=== PATIENT | female | born 1955 | race Caucasian/White ===

== ENCOUNTER 2022-01-13 09:37 | Inpatient (IN) ==
--- NOTE | 2022-01-13 10:12 | Emergency Department Note ---
History of Present Illness General Chief complaint: Referred by Doctor Stated complaint: ABNORMAL LABS, REFERRED BY DANIEL DEMPSEY Time Seen by Provider: 01/13/22 09:53 Source: patient, family ( who is at the bedside), RN notes reviewed and old records reviewed Mode of arrival: ambulatory Limitations: no limitations History of Present Illness This patient is a 66-year-old female who was sent over by Dr. Murphy's office after having a third-degree heart block noted on her ZIO monitor that she has not had on for the last 10 days. She said this all started on October 29 when she had a colonoscopy it was noted that she was having some atrial arrhythmias and heart blocks. She just completed the ZIO. She denies that she is had any chest pain occasionally she gets lightheaded when walking but no syncope or near syncope no nausea vomiting no fever chills no blood or melena stool no tick bites or exposures or rash no thyroid disease . no history of any similar problems Home Medications Medication Instructions Recorded Confirmed Type fexofenadine 60 mg tablet (Marilyn 60 mg PO DAILY 01/13/22 01/13/22 History Allergy) fluticasone propionate 50 2 spray INTRANASAL DAILY 01/13/22 01/13/22 History mcg/actuation nasal spray,suspension folic acid 1 mg tablet 1 mg PO DAILY 01/13/22 01/13/22 History mecobalamin (vitamin B12) 1,000 1,000 mcg PO DAILY 01/13/22 01/13/22 History mcg chewable tablet (B12 Active) Allergies Allergy/AdvReac Type Severity Reaction Status Date / Time No Known Allergies Allergy Unverified 01/13/22 11:08 Past Med/Surg History Medical History Seasonal allergies Surgical History No significant past surgical history Family History Mother Cancer Father Diabetes Social History Smoking Status: Never smoker Hx Alcohol Use: No Hx Substance Use: No Preferred Language: Mongolian Tube Blower Required: No Beliefs That Will Affect Care: None Other Information That Helps Us Care for You: No Feels Safe at Home: Yes Safety Concerns: Feels Safe At This Time Assistive Devices: Glasses Immunizations: Past medical history seasonal allergies denies significant past medical history otherwise. Denies diabetes or coronary artery disease no Allergiesno known drug allergy Social history does not smoke. Drinks socially. She is retired. Review of Systems A total of 10 systems reviewed and were otherwise negative Physical Exam Vital Signs Vital Signs - 24 hr 01/13/22 09:38 01/13/22 10:02 01/13/22 10:40 Temperature 36.4 C L Temperature Source Temporal Artery Scan Pulse Rate 93 H 78 Pulse Rate [Left Finger] 86 Pulse Rhythm Regular Respiratory Rate 18 16 20 Blood Pressure 176/97 H Blood Pressure [Left Arm] 186/106 H Blood Pressure Mean 123 Blood Pressure Mean [Left Arm] 132 Blood Pressure Position [Left Arm] Sitting Pulse Oximetry 97 98 98 Oxygen Delivery Method Room Air Room Air Sepsis Recent Fever Within 48 Hours No Sepsis New/Unexplained Change in Mental Status No Sepsis Action Taken by Nursing No Action Required General: Well developed well nourished middle-age female who appears in no acute distress, breathing comfortably on room air. Normal speech HEENT: Normal cephalic atraumatic. Pupils are equal round and reactive to light. Extraocular movements are intact. Oropharynx is pink with moist mucous membranes. No swelling of the mouth lips or tongue. Neck: Supple with a midline trachea. No meningeal signs or stiffness, no JVD or bruits. No Stridor. Chest: Clear to auscultation bilaterally. No wheezes or rhonchi. No increased work of breathing. Heart: Regular rate and rhythm without murmurs or gallops. Abdomen: Soft nontender, nondistended without rebound guarding or rigidity. Extremities: No cyanosis clubbing or edema. No calf tenderness or assymetry Spine/Back. Non tender to palpation. No CVA tenderness Skin: Good turgor without rashes. Neurologic exam: Cranial nerves two through 12 are intact. Motor and sensation are intact and symmetrical throughout. Course Administered Medications Discontinued Medications Sodium Chloride (Nss 1000ml) 500 mls @ 999 mls/hr IV .Q31M ONE Stop: 01/13/22 10:48 Last Infusion: 01/13/22 15:03 Dose: 0 mls/hr Documented by: [id number] Admin: 01/13/22 10:33 Dose: 999 mls/hr Documented by: [id number] Medical Decision Making Differential Diagnosis Third-degree heart block, arrhythmia, acute coronary syndrome, electrolyte or metabolic abnormality, Lyme disease, thyroid disease, valvular heart disease Medical Records Attestation: I reviewed the patient's medical records. Home Medications Current Medication List: was personally reviewed by me Laboratory Data Attestation: I reviewed the patient's lab results. Result diagrams: 01/13/22 10:49 01/13/22 09:58 Lab Results 01/13/22 01/13/22 01/13/22 Range/Units 09:58 09:58 09:58 WBC Cancelled RBC Cancelled Hgb Cancelled Hct Cancelled MCV Cancelled MCH Cancelled MCHC Cancelled RDW Std Deviation Cancelled RDW Coeff of Kiesha Cancelled Plt Count Cancelled MPV Cancelled Immature Gran % (Auto) Cancelled Neut % (Auto) Cancelled Lymph % (Auto) Cancelled Mcleod % (Auto) Cancelled Eos % (Auto) Cancelled Baso % (Auto) Cancelled Neut # (Auto) Cancelled Lymph # (Auto) Cancelled Mcleod # (Auto) Cancelled Eos # (Auto) Cancelled Baso # (Auto) Cancelled Immature Gran # (Auto) Cancelled Absolute Nucleated RBC Cancelled Nucleated RBC % (auto) Cancelled Neutrophils % (Manual) Cancelled Band Neutrophils % Cancelled Lymphocytes % (Manual) Cancelled Prolymphocyte % Cancelled Reactive Lymphs % (Man) Cancelled Monocytes % (Manual) Cancelled Eosinophils % (Manual) Cancelled Basophils % (Manual) Cancelled Metamyelocytes % (Man) Cancelled Myelocytes % (Man) Cancelled Promyelocytes % (Man) Cancelled Blast Cells % (Manual) Cancelled Plasma Cell % (Manual) Cancelled Other Cells % Cancelled Nucleated RBC % Cancelled Neutrophils # (Manual) Cancelled Band Neutrophils # Cancelled Total Absolute Neuts Cancelled Lymphocytes # (Manual) Cancelled Prolymphocyte # Cancelled Reactive Lymphs # Cancelled Total Abs Lymphocytes Cancelled Monocytes # (Manual) Cancelled Eosinophils # (Manual) Cancelled Basophils # (Manual) Cancelled Metamyelocytes # (Man) Cancelled Myelocytes # (Manual) Cancelled Promyelocytes # (Man) Cancelled Blast Cells # (Man) Cancelled Plasma Cell # (Manual) Cancelled Other Cells # Cancelled Nucleated RBCs # (Man) Cancelled Hypersegmented Neuts Cancelled Hyposegmented Neuts Cancelled Hypogranular Neuts Cancelled Large Granular Lymphs Cancelled # Lrg Granular Lymphs Cancelled Hairy Cells Cancelled Smudge Cells Cancelled Toxic Granulation Cancelled Toxic Vacuolation Cancelled Dohle Bodies Cancelled Danilo Rods Cancelled Platelet Estimate Cancelled Hypogranular Platelets Cancelled Clumped Platelets Cancelled Giant Platelets Cancelled Platelet Satelliting Cancelled RBC Morphology Cancelled Polychromasia Cancelled Hypochromasia Cancelled Poikilocytosis Cancelled Basophilic Stippling Cancelled Anisocytosis Cancelled Microcytosis Cancelled Macrocytosis Cancelled Spherocytes Cancelled Pappenheimer Bodies Cancelled Sickle Cells Cancelled Target Cells Cancelled Tear Drop Cells Cancelled Ovalocytes Cancelled Stomatocytes Cancelled [place] Bodies Cancelled Echinocytes Cancelled Acanthocytes (Spur) Cancelled Rouleaux Cancelled RBC Agglutinates Cancelled Schistocytes Cancelled Sezary Cell Cancelled PT Cancelled INR Cancelled APTT Cancelled PTT Ratio Cancelled Sodium 139 (136-145) mmol/L Potassium 3.8 (3.5-5.1) mmol/L Chloride 106 (98-107) mmol/L Carbon Dioxide 21 (21-32) mmol/L Anion Gap 12 H (3-11) BUN 12 (6-23) mg/dl Creatinine 0.60 (0.6-1.2) mg/dl Est Cr Clr Drug Dosing 72.4 ml/min Est GFR ( Amer) 109.3 ml/min Est GFR (Non-Af Amer) 94.3 ml/min BUN/Creatinine Ratio 20.0 (10-20) Glucose 104 H (70-99(Fasting)) mg/dl Calcium 10.0 (8.5-10.1) mg/dl Total Bilirubin 0.8 (0.2-1.0) mg/dl AST 21 (13-39) U/L ALT 22 (7-52) U/L Alkaline Phosphatase 81 (34-104) U/L Troponin I High Sens 2.9 (0-14) pg/ml Total Protein 7.0 (6.0-8.3) gm/dl Albumin 4.8 (3.4-5.0) gm/dl Globulin 2.2 L (2.5-4.0) gm/dl Albumin/Globulin Ratio 2.2 H (0.9-2) Lipase (11-82) U/L TSH (0.300-4.500) uIu/ml Lyme Disease IgG Ab (Negative) Lyme Disease IgM Ab (Negative) SARS-CoV-2, RNA, NAAT (NEGATIVE) 01/13/22 01/13/22 01/13/22 Range/Units 09:58 10:24 10:24 WBC RBC Hgb Hct MCV MCH MCHC RDW Std Deviation RDW Coeff of Kiesha Plt Count MPV Immature Gran % (Auto) Neut % (Auto) Lymph % (Auto) Mcleod % (Auto) Eos % (Auto) Baso % (Auto) Neut # (Auto) Lymph # (Auto) Mcleod # (Auto) Eos # (Auto) Baso # (Auto) Immature Gran # (Auto) Absolute Nucleated RBC Nucleated RBC % (auto) Neutrophils % (Manual) Band Neutrophils % Lymphocytes % (Manual) Prolymphocyte % Reactive Lymphs % (Man) Monocytes % (Manual) Eosinophils % (Manual) Basophils % (Manual) Metamyelocytes % (Man) Myelocytes % (Man) Promyelocytes % (Man) Blast Cells % (Manual) Plasma Cell % (Manual) Other Cells % Nucleated RBC % Neutrophils # (Manual) Band Neutrophils # Total Absolute Neuts Lymphocytes # (Manual) Prolymphocyte # Reactive Lymphs # Total Abs Lymphocytes Monocytes # (Manual) Eosinophils # (Manual) Basophils # (Manual) Metamyelocytes # (Man) Myelocytes # (Manual) Promyelocytes # (Man) Blast Cells # (Man) Plasma Cell # (Manual) Other Cells # Nucleated RBCs # (Man) Hypersegmented Neuts Hyposegmented Neuts Hypogranular Neuts Large Granular Lymphs # Lrg Granular Lymphs Hairy Cells Smudge Cells Toxic Granulation Toxic Vacuolation Dohle Bodies Danilo Rods Platelet Estimate Hypogranular Platelets Clumped Platelets Giant Platelets Platelet Satelliting RBC Morphology Polychromasia Hypochromasia Poikilocytosis Basophilic Stippling Anisocytosis Microcytosis Macrocytosis Spherocytes Pappenheimer Bodies Sickle Cells Target Cells Tear Drop Cells Ovalocytes Stomatocytes [place] Bodies Echinocytes Acanthocytes (Spur) Rouleaux RBC Agglutinates Schistocytes Sezary Cell PT INR APTT PTT Ratio Sodium (136-145) mmol/L Potassium (3.5-5.1) mmol/L Chloride (98-107) mmol/L Carbon Dioxide (21-32) mmol/L Anion Gap (3-11) BUN (6-23) mg/dl Creatinine (0.6-1.2) mg/dl Est Cr Clr Drug Dosing ml/min Est GFR ( Amer) ml/min Est GFR (Non-Af Amer) ml/min BUN/Creatinine Ratio (10-20) Glucose (70-99(Fasting)) mg/dl Calcium (8.5-10.1) mg/dl Total Bilirubin (0.2-1.0) mg/dl AST (13-39) U/L ALT (7-52) U/L Alkaline Phosphatase (34-104) U/L Troponin I High Sens (0-14) pg/ml Total Protein (6.0-8.3) gm/dl Albumin (3.4-5.0) gm/dl Globulin (2.5-4.0) gm/dl Albumin/Globulin Ratio (0.9-2) Lipase 27 (11-82) U/L TSH (0.300-4.500) uIu/ml Lyme Disease IgG Ab Negative (Negative) Lyme Disease IgM Ab Negative (Negative) SARS-CoV-2, RNA, NAAT NEGATIVE (NEGATIVE) 01/13/22 01/13/22 01/13/22 Range/Units 10:49 10:49 10:50 WBC 5.14 RBC 4.35 Hgb 14.6 Hct 43.0 MCV 98.9 MCH 33.6 MCHC 34.0 RDW Std Deviation 44.7 RDW Coeff of Kiesha 12.3 Plt Count 209 MPV 10.9 H Immature Gran % (Auto) 0.2 Neut % (Auto) 59.3 Lymph % (Auto) 30.5 Mcleod % (Auto) 7.8 Eos % (Auto) 1.2 Baso % (Auto) 1.0 Neut # (Auto) 3.05 Lymph # (Auto) 1.57 Mcleod # (Auto) 0.40 Eos # (Auto) 0.06 Baso # (Auto) 0.05 Immature Gran # (Auto) 0.01 Absolute Nucleated RBC Nucleated RBC % (auto) Neutrophils % (Manual) Band Neutrophils % Lymphocytes % (Manual) Prolymphocyte % Reactive Lymphs % (Man) Monocytes % (Manual) Eosinophils % (Manual) Basophils % (Manual) Metamyelocytes % (Man) Myelocytes % (Man) Promyelocytes % (Man) Blast Cells % (Manual) Plasma Cell % (Manual) Other Cells % Nucleated RBC % Neutrophils # (Manual) Band Neutrophils # Total Absolute Neuts Lymphocytes # (Manual) Prolymphocyte # Reactive Lymphs # Total Abs Lymphocytes Monocytes # (Manual) Eosinophils # (Manual) Basophils # (Manual) Metamyelocytes # (Man) Myelocytes # (Manual) Promyelocytes # (Man) Blast Cells # (Man) Plasma Cell # (Manual) Other Cells # Nucleated RBCs # (Man) Hypersegmented Neuts Hyposegmented Neuts Hypogranular Neuts Large Granular Lymphs # Lrg Granular Lymphs Hairy Cells Smudge Cells Toxic Granulation Toxic Vacuolation Dohle Bodies Danilo Rods Platelet Estimate Hypogranular Platelets Clumped Platelets Giant Platelets Platelet Satelliting RBC Morphology Polychromasia Hypochromasia Poikilocytosis Basophilic Stippling Anisocytosis Microcytosis Macrocytosis Spherocytes Pappenheimer Bodies Sickle Cells Target Cells Tear Drop Cells Ovalocytes Stomatocytes [place] Bodies Echinocytes Acanthocytes (Spur) Rouleaux RBC Agglutinates Schistocytes Sezary Cell PT 11.2 INR 1.1 APTT 25.1 PTT Ratio 0.9 Sodium (136-145) mmol/L Potassium (3.5-5.1) mmol/L Chloride (98-107) mmol/L Carbon Dioxide (21-32) mmol/L Anion Gap (3-11) BUN (6-23) mg/dl Creatinine (0.6-1.2) mg/dl Est Cr Clr Drug Dosing ml/min Est GFR ( Amer) ml/min Est GFR (Non-Af Amer) ml/min BUN/Creatinine Ratio (10-20) Glucose (70-99(Fasting)) mg/dl Calcium (8.5-10.1) mg/dl Total Bilirubin (0.2-1.0) mg/dl AST (13-39) U/L ALT (7-52) U/L Alkaline Phosphatase (34-104) U/L Troponin I High Sens (0-14) pg/ml Total Protein (6.0-8.3) gm/dl Albumin (3.4-5.0) gm/dl Globulin (2.5-4.0) gm/dl Albumin/Globulin Ratio (0.9-2) Lipase (11-82) U/L TSH 1.956 (0.300-4.500) uIu/ml Lyme Disease IgG Ab (Negative) Lyme Disease IgM Ab (Negative) SARS-CoV-2, RNA, NAAT (NEGATIVE) Imaging Data Attestation: I personally reviewed and interpreted this imaging study as follo ws: My Impression: Chest x-rayno acute infiltrate, failure, pneumothorax seen Radiologist's Impression: Chest X-Ray 01/13/22 10:01 SINGLE VIEW CHEST CLINICAL HISTORY: Atypical chest pain. FINDINGS: An AP, portable, upright chest radiograph is obtained. No prior studies are available for comparison at the time of dictation. The car diomediastinal silhouette is unremarkable. The lungs and pleural spaces are clear. No pneumothorax is seen. The skeletal structures are osteopenic. The bony thorax is grossly intact. IMPRESSION: No active disease in the chest. ACT 112: Negative or not required by law. Electronically signed by: Evin Combs M.D. 01/13/2022 12:37 PM ECG Data Attestation: I personally reviewed and interpreted this ECG as follows: Indication: + bradycardia and + weakness Rate (beats per minute): 93 Rhythm: + normal sinus ECG Intervals/blocks: + Normal QRS, + Normal QT and + Normal FL ECG [place]: + Normal ECG ST segments: + Nonspecific ST abnormalities ECG Findings: no PACs or no PVCs Comparison ECG Date: no prior available MDM Narrative This patient comes in as described above. She was placed in room C4. She is asymptomatic at present but is have been having intermittent third-degree heart block. Currently on the monitor she is not in heart block. IV access was established multiple blood testing was obtained including Lyme studies. I r eviewed her Zio monitor strips that were sent over and she does have documented third-degree heart block at times. She has no acute electrolyte or metabolic abnormalities. She has a normal-appearing media monitor here. Chest x-ray does not show congestive heart failure pneumonia or pneumothorax her TSH is within normal limits which makes thyroid unlikely. Her Lyme titer was negative. I did consult Dr. Munson and he promptly saw the patient in ER we have kept the patient n.p.o. he will likely be taking her to have a pacemaker either today or tomorrow I have also consulted the [facility] admitting team and they saw the patient in ER for these measures as well. COVID testing was negative Continuous cardiac monitoring: Orders placed in EMR for continuous cardiac monitoring. Askew interpretation patient was noted to be in normal sinus rhythm with a rate of 90 Impression & Plan High degree atrioventricular block, Third degree heart block, Lab test negative for COVID-19 virus Discharge Plan Visit Data Chief Complaint: Referred by Doctor Stated Complaint: ABNORMAL LABS, REFERRED BY , HEART BLOCK ED Provider: Charles Jacobs Discharge Problem: High degree atrioventricular block, Third degree heart block, Lab test negative for COVID-19 virus Patient Disposition: Admitted As Inpatient Discharge Instructions Interventions: ED Discharge Assessment Last Done: 01/13/22 13:56
[2022-01-13] MEDS ORDERED: SODIUM CHLORIDE 0.9% 1000ML 500 ML IV ONE (10:18)
[2022-01-13 10:39] LABS: Albumin Globulin Ratio 2.2 (0.9-2); Albumin Level 4.8 gm/dl (3.4-5.0); Bilirubin,Total 0.8 mg/dl (0.2-1.0); Creatinine Clr Calc Pharmacy 72.4 ml/min; Est GFR (African American) 109.3 ml/min; Est GFR (Non-African American) 94.3 ml/min; Globulin 2.2 gm/dl (2.5-4.0); Potassium 3.8 mmol/L (3.5-5.1)
[2022-01-13 10:40] LABS: Troponin I High Sensitivity 2.9 pg/ml (0-14)
[2022-01-13 11:04] LABS: Basophils # (auto) 0.05 K/uL (0-0.2); Eosinophils # (auto) 0.06 K/uL (0-0.5); Eosinophils % (auto) 1.2 %; Hemoglobin 14.6 g/dL (12.0-16.0); Immature Granulocytes # (auto) 0.01 K/uL (0.00-0.02); Immature Granulocytes % (auto) 0.2 %; Lymphocytes # (auto) 1.57 K/uL (1.2-3.4); Lymphocytes % (auto) 30.5 %; Mean Corpuscular Hemoglobin 33.6 pg (25-34); Mean Corpuscular Volume 98.9 fL (80-100); Mean Platelet Volume 10.9 fL (7.4-10.4); Monocytes % (auto) 7.8 %; Neutrophils # (auto) 3.05 K/uL (1.4-6.5); Neutrophils % (auto) 59.3 %; Platelet Count 209 K/uL (130-400); RDW Coefficient of Variation 12.3 % (11.5-14.5); RDW Standard Deviation 44.7 fL (36.4-46.3); Red Blood Count 4.35 M/uL (4.2-5.4); White Blood Count 5.14 K/uL (4.8-10.8)
--- NOTE | 2022-01-13 11:20 | Cardiology Consultation ---
Date of Consultation January 13, 2022 Assessment & Plan (1) High degree atrioventricular block: Patient is a 66-year-old female active without significant medical issues who was observed having intermittent second-degree AV block following routine colonoscopy in October 2021. Patient in follow-up underwent 14-day Zio patch monitor which demonstrated intermittent second and third-degree AV block. Patient minimally symptomatic with occasional lightheadedness at times no prior history of syncope or near syncope. No history of structural heart disease or symptoms. Thyroid function and Lyme test pending. Patient currently without conduction abnormality on EKG and telemetry, asymptomatic and hemodynamically stable Recommendations: Complete evaluation with echocardiogram this morning. We will review laboratory testing as available. Discussed with patient likely need for dual-chamber pacemaker insertion and we will keep n.p.o. for potential procedure later today depending on results of testing History of Present Illness Reason for Consultation: Abnormal Zio patch, intermittent third-degree AV block Requesting Physician: Dr. Jacobs Attending Physician: Dr Álvarez History of Present Illness Patient is a 66-year-old female without prior cardiac disease or history was observed during colonoscopy in October to have transient second-degree AV block. Patient was referred and underwent cardiac evaluation and subsequent Zio patch event monitor recently completed. Study demonstrated intermittent second-degree as well as multiple episodes of brief third-degree heart block with junctional escape rhythm at 40 bpm. Patient has been referred for further evaluation. She is aware of occasional intermittent lightheadedness but notes no syncope or near syncope. Notes no chest pains, shortness of breath, tachypalpitations. No fevers chills or unexplained infections. No tick exposure or rash. No acute weight loss or gain. Patient physically active walks and exercises several days per week with good exercise tolerance. No sleep disturbances. No AV lloyd blocking medications no significant dietary supplements Patient has no personal history of hypertension, diabetes mellitus, angina, congestive heart failure. Blood pressure is elevated during examination today Patient has maternal uncles who have received pacemakers. Father with history of coronary artery disease Allergies Allergy/AdvReac Type Severity Reaction Status Date / Time No Known Allergies Allergy Unverified 01/13/22 11:08 Patient History Social History Smoking Status: Never smoker Preferred Language: Singaporean Feels Safe at Home: Yes Review of Systems Review of Systems: All systems reviewed & are unremarkable except as noted in HPI & below Physical Exam Constitutional: WD/WN, vitals as above Eyes: PERRL, conjunctivae normal, anicteric sclerae ENMT: external ear and nose normal, oropharynx normal Neck: trachea midline, no thyromegaly Respiratory: normal respiratory effort, lungs clear to auscultation Cardiovascular: Rate/Rhythm: regular rate and regular rhythm Heart Sounds: normal S1, normal S2 and + gallop (S4); no murmur Palpation: normal PMI Vessels: normal carotid upstroke and radial pulses present; no JVD and no carotid bruit Extremities: no edema Gastrointestinal (Abdomen): normal bowel sounds, soft, nontender, no hep atosplenomegaly Musculoskeletal: no cyanosis or clubbing, extremities motor strength 5/5 Skin: no rashes, warm and dry Neurologic: PERRL, EOMI, accommodation nl, no face palsy, no dysarthria Psychiatric: A+Ox3, euthymic affect Results & Data ([facility]) Vital Signs (Past 12 Hours) Vital Signs Temp Pulse Pulse Resp BP BP Pulse Ox 01/13/22 10:40 86 20 186/106 H 98 01/13/22 10:02 78 16 98 01/13/22 09:38 36.4 C L 93 H 18 176/97 H 97 Laboratory Results Laboratory Results - last 24 hr 01/13/22 01/13/22 01/13/22 09:58 09:58 09:58 WBC Cancelled RBC Cancelled Hgb Cancelled Hct Cancelled MCV Cancelled MCH Cancelled MCHC Cancelled RDW Std Deviation Cancelled RDW Coeff of Kiesha Cancelled Plt Count Cancelled MPV Cancelled Immature Gran % (Auto) Cancelled Neut % (Auto) Cancelled Lymph % (Auto) Cancelled Clark % (Auto) Cancelled Eos % (Auto) Cancelled Baso % (Auto) Cancelled Neut # (Auto) Cancelled Lymph # (Auto) Cancelled Clark # (Auto) Cancelled Eos # (Auto) Cancelled Baso # (Auto) Cancelled Immature Gran # (Auto) Cancelled Absolute Nucleated RBC Cancelled Nucleated RBC % (auto) Cancelled Neutrophils % (Manual) Cancelled Band Neutrophils % Cancelled Lymphocytes % (Manual) Cancelled Prolymphocyte % Cancelled Reactive Lymphs % (Man) Cancelled Monocytes % (Manual) Cancelled Eosinophils % (Manual) Cancelled Basophils % (Manual) Cancelled Metamyelocytes % (Man) Cancelled Myelocytes % (Man) Cancelled Promyelocytes % (Man) Cancelled Blast Cells % (Manual) Cancelled Plasma Cell % (Manual) Cancelled Other Cells % Cancelled Nucleated RBC % Cancelled Neutrophils # (Manual) Cancelled Band Neutrophils # Cancelled Total Absolute Neuts Cancelled Lymphocytes # (Manual) Cancelled Prolymphocyte # Cancelled Reactive Lymphs # Cancelled Total Abs Lymphocytes Cancelled Monocytes # (Manual) Cancelled Eosinophils # (Manual) Cancelled Basophils # (Manual) Cancelled Metamyelocytes # (Man) Cancelled Myelocytes # (Manual) Cancelled Promyelocytes # (Man) Cancelled Blast Cells # (Man) Cancelled Plasma Cell # (Manual) Cancelled Other Cells # Cancelled Nucleated RBCs # (Man) Cancelled Hypersegmented Neuts Cancelled Hyposegmented Neuts Cancelled Hypogranular Neuts Cancelled Large Granular Lymphs Cancelled # Lrg Granular Lymphs Cancelled Hairy Cells Cancelled Smudge Cells Cancelled Toxic Granulation Cancelled Toxic Vacuolation Cancelled Dohle Bodies Cancelled Danilo Rods Cancelled Platelet Estimate Cancelled Hypogranular Platelets Cancelled Clumped Platelets Cancelled Giant Platelets Cancelled Platelet Satelliting Cancelled RBC Morphology Cancelled Polychromasia Cancelled Hypochromasia Cancelled Poikilocytosis Cancelled Basophilic Stippling Cancelled Anisocytosis Cancelled Microcytosis Cancelled Macrocytosis Cancelled Spherocytes Cancelled Pappenheimer Bodies Cancelled Sickle Cells Cancelled Target Cells Cancelled Tear Drop Cells Cancelled Ovalocytes Cancelled Stomatocytes Cancelled Curiel-[place]park Bodies Cancelled Echinocytes Cancelled Acanthocytes (Spur) Cancelled Rouleaux Cancelled RBC Agglutinates Cancelled Schistocytes Cancelled Sezary Cell Cancelled PT Cancelled INR Cancelled APTT Cancelled PTT Ratio Cancelled Sodium 139 Potassium 3.8 Chloride 106 Carbon Dioxide 21 Anion Gap 12 H BUN 12 Creatinine 0.60 Est Cr Clr Drug Dosing 72.4 Est GFR ( Amer) 109.3 Est GFR (Non-Af Amer) 94.3 BUN/Creatinine Ratio 20.0 Glucose 104 H Calcium 10.0 Total Bilirubin 0.8 AST 21 ALT 22 Alkaline Phosphatase 81 Troponin I High Sens 2.9 Total Protein 7.0 Albumin 4.8 Globulin 2.2 L Albumin/Globulin Ratio 2.2 H Lipase TSH Lyme Disease IgG Ab Lyme Disease IgM Ab SARS-CoV-2, RNA, NAAT 01/13/22 01/13/22 01/13/22 09:58 10:24 10:24 WBC RBC Hgb Hct MCV MCH MCHC RDW Std Deviation RDW Coeff of Kiesha Plt Count MPV Immature Gran % (Auto) Neut % (Auto) Lymph % (Auto) Clark % (Auto) Eos % (Auto) Baso % (Auto) Neut # (Auto) Lymph # (Auto) Clark # (Auto) Eos # (Auto) Baso # (Auto) Immature Gran # (Auto) Absolute Nucleated RBC Nucleated RBC % (auto) Neutrophils % (Manual) Band Neutrophils % Lymphocytes % (Manual) Prolymphocyte % Reactive Lymphs % (Man) Monocytes % (Manual) Eosinophils % (Manual) Basophils % (Manual) Metamyelocytes % (Man) Myelocytes % (Man) Promyelocytes % (Man) Blast Cells % (Manual) Plasma Cell % (Manual) Other Cells % Nucleated RBC % Neutrophils # (Manual) Band Neutrophils # Total Absolute Neuts Lymphocytes # (Manual) Prolymphocyte # Reactive Lymphs # Total Abs Lymphocytes Monocytes # (Manual) Eosinophils # (Manual) Basophils # (Manual) Metamyelocytes # (Man) Myelocytes # (Manual) Promyelocytes # (Man) Blast Cells # (Man) Plasma Cell # (Manual) Other Cells # Nucleated RBCs # (Man) Hypersegmented Neuts Hyposegmented Neuts Hypogranular Neuts Large Granular Lymphs # Lrg Granular Lymphs Hairy Cells Smudge Cells Toxic Granulation Toxic Vacuolation Dohle Bodies Danilo Rods Platelet Estimate Hypogranular Platelets Clumped Platelets Giant Platelets Platelet Satelliting RBC Morphology Polychromasia Hypochromasia Poikilocytosis Basophilic Stippling Anisocytosis Microcytosis Macrocytosis Spherocytes Pappenheimer Bodies Sickle Cells Target Cells Tear Drop Cells Ovalocytes Stomatocytes Curiel-[place] Bodies Echinocytes Acanthocytes (Spur) Rouleaux RBC Agglutinates Schistocytes Sezary Cell PT INR APTT PTT Ratio Sodium Potassium Chloride Carbon Dioxide Anion Gap BUN Creatinine Est Cr Clr Drug Dosing Est GFR ( Amer) Est GFR (Non-Af Amer) BUN/Creatinine Ratio Glucose Calcium Total Bilirubin AST ALT Alkaline Phosphatase Troponin I High Sens Total Protein Albumin Globulin Albumin/Globulin Ratio Lipase 27 TSH Lyme Disease IgG Ab Pending Lyme Disease IgM Ab Pending SARS-CoV-2, RNA, NAAT NEGATIVE 01/13/22 01/13/22 01/13/22 10:49 10:49 10:50 WBC 5.14 RBC 4.35 Hgb 14.6 Hct 43.0 MCV 98.9 MCH 33.6 MCHC 34.0 RDW Std Deviation 44.7 RDW Coeff of Kiesha 12.3 Plt Count 209 MPV 10.9 H Immature Gran % (Auto) 0.2 Neut % (Auto) 59.3 Lymph % (Auto) 30.5 Clark % (Auto) 7.8 Eos % (Auto) 1.2 Baso % (Auto) 1.0 Neut # (Auto) 3.05 Lymph # (Auto) 1.57 Clark # (Auto) 0.40 Eos # (Auto) 0.06 Baso # (Auto) 0.05 Immature Gran # (Auto) 0.01 Absolute Nucleated RBC Nucleated RBC % (auto) Neutrophils % (Manual) Band Neutrophils % Lymphocytes % (Manual) Prolymphocyte % Reactive Lymphs % (Man) Monocytes % (Manual) Eosinophils % (Manual) Basophils % (Manual) Metamyelocytes % (Man) Myelocytes % (Man) Promyelocytes % (Man) Blast Cells % (Manual) Plasma Cell % (Manual) Other Cells % Nucleated RBC % Neutrophils # (Manual) Band Neutrophils # Total Absolute Neuts Lymphocytes # (Manual) Prolymphocyte # Reactive Lymphs # Total Abs Lymphocytes Monocytes # (Manual) Eosinophils # (Manual) Basophils # (Manual) Metamyelocytes # (Man) Myelocytes # (Manual) Promyelocytes # (Man) Blast Cells # (Man) Plasma Cell # (Manual) Other Cells # Nucleated RBCs # (Man) Hypersegmented Neuts Hyposegmented Neuts Hypogranular Neuts Large Granular Lymphs # Lrg Granular Lymphs Hairy Cells Smudge Cells Toxic Granulation Toxic Vacuolation Dohle Bodies Danilo Rods Platelet Estimate Hypogranular Platelets Clumped Platelets Giant Platelets Platelet Satelliting RBC Morphology Polychromasia Hypochromasia Poikilocytosis Basophilic Stippling Anisocytosis Microcytosis Macrocytosis Spherocytes Pappenheimer Bodies Sickle Cells Target Cells Tear Drop Cells Ovalocytes Stomatocytes Curiel-[place] Bodies Echinocytes Acanthocytes (Spur) Rouleaux RBC Agglutinates Schistocytes Sezary Cell PT Pending INR Pending APTT Pending PTT Ratio Pending Sodium Potassium Chloride Carbon Dioxide Anion Gap BUN Creatinine Est Cr Clr Drug Dosing Est GFR ( Amer) Est GFR (Non-Af Amer) BUN/Creatinine Ratio Glucose Calcium Total Bilirubin AST ALT Alkaline Phosphatase Troponin I High Sens Total Protein Albumin Globulin Albumin/Globulin Ratio Lipase TSH Pending Lyme Disease IgG Ab Lyme Disease IgM Ab SARS-CoV-2, RNA, NAAT Diagnostic Findings 14-day Zio patch event monitor 01/12/2022 report REASON FOR STUDY: AV block 14 days CONCLUSIONS: Patient had a min HR of 42 bpm, max HR of 141 bpm, and avg HR of 78 bpm. Predominant underlying rhythm was Sinus Rhythm. 1 run of Supraventricular Tachycardia occurred lasting 6 beats with a max rate of 141 bpm (avg 117 bpm). Episode of Supraventricular Tachycardia may be possible Atrial Tachycardia with variable block. 386 episode(s) of AV Block (2nd Mobitz II and 3rd) occurred, lasting a total of 5 hours 41 mins. Isolated SVEs were rare (<1.0%), SVE Couplets were rare (<1.0%), and SVE Triplets were rare (<1.0%). Isolated VEs were rare (<1.0%), and no VE Couplets or VE Triplets were present. ECG Additional Comments: 01/13/2022: Normal sinus rhythm at 93 bpm with borderline criteria for left atrial enlargement and nonspecific ST segment changes
[2022-01-13 11:34] LABS: INR 1.1 (0.9-1.1); Partial Thromboplastin Ratio 0.9; Partial Thromboplastin Time 25.1 Seconds (21.0-31.0); Prothrombin Time 11.2 Seconds (9.0-12.0)
[2022-01-13 11:46] LABS: Lyme Ab IgG w/WB Rflx Negative (Negative)
[2022-01-13 11:49] LABS: Lyme Ab IgM w/WB Rflx Negative (Negative)
--- NOTE | 2022-01-13 12:13 | Communication Note ---
Date of Service: January 13, 2022 History and physical exam performed by me. History notable for 66-year-old woman with no chronic medical problems except for seasonal allergies who was calling today ER for abnormal findings and Zio patch. Patient recently had Zio patch monitoring and per cardiology, was noted to have intermittent second-degree and some third-degree block and the test. On review of system, patient denies any symptoms. On Exam, General: Well nourished, well hydrated, average body habitus, no acute distress and not ill appearing Eyes: PERRL, conjunctivae normal, not pale, anicteric sclerae, EOM intact bilaterally ENMT: External ear and nose normal, oropharynx normal Respiratory: Normal respiratory effort, no respiratory distress, lungs clear to auscultation, no crackles and no wheezes Cardiovascular: RRR S1 S2 Gastrointestinal (Abdomen): Abdomen is not distended, soft, non-tender to palpation, no guarding, no palpable hepatosplenomegaly, normal bowel sounds Musculoskeletal: No cyanosis or clubbing, all extremities motor strength 5/5. No pedal edema Neurologic: Alert and oriented x 3, No focal weakness, sensation grossly intact Psychiatric: Alert and oriented x 3, euthymic affect, no depressed affect Labs was grossly unremarkable. AV block Intermittend 2nd degree and 3rd degree Cardiology consult for evaluation for pacemaker placement Avoid AV lloyd blocking agent N.p.o. for now for possible cardiac procedure Agree with other plans as detailed by Sarahi PETTY
--- NOTE | 2022-01-13 12:39 | XRay Report ---
SINGLE VIEW CHEST CLINICAL HISTORY: Atypical chest pain. FINDINGS: An AP, portable, upright chest radiograph is obtained. No prior studies are available for c omparison at the time of dictation. The cardiomediastinal silhouette is unremarkable. The lungs and p leural spaces are clear. No pneumothorax is seen. The skeletal structures are osteopenic. The bony th orax is grossly intact. IMPRESSION: No active disease in the chest. ACT 112: Negative or not required by law. Electronically signed by: Evin Combs M.D. 01/13/2022 12:37 PM
--- NOTE | 2022-01-13 13:38 | History & Physical Report ---
Date of Service January 13, 2022 Assessment & Plan (1) High degree atrioventricular block: Plan: Admit to telemetry Patient referred by outpatient cardiology after Zio patch showed intermittent episodes of third-degree heart block Patient currently in NSR, hemodynamically stable. Seems to be relatively asymptomatic from third-degree heart block. TSH WNL, Lyme testing negative Resting echo pending Has been evaluated by cardiology, possibly planning on pacemaker today (2) DVT prophylaxis: Plan: SCDs due to planned procedure History of Present Illness Chief Complaint: Referred by head of advertising Primary Care Provider: Gary De La Cruz DO 66-year-old female without significant past medical or surgical history who presents the ED by referral of head of advertising for evaluation of third-degree heart block. Patient had routine screening colonoscopy in October and during the procedure was noted to have intermittent bradycardia and episodes of second- degree heart block. Patient was evaluated in the cardiology clinic and had an outpatient Zio patch performed. Results were reviewed today and patient has been having episodes of third-degree heart block. Patient reports that she has been feeling well recently. She reports that she walks several times per week. Notes that maybe she has been having some mild exertional shortness of breath and lightheadedness toward the end of her walks. She denies chest pain and palpitations. No syncopal events. Denies any other recent illnesses, fevers, chills. No abdominal pain, nausea, vomiting, diarrhea. Denies urinary symptoms. In the ED, patient is hemodynamically stable and currently in NSR. Labs are unremarkable. She has been evaluated by Dr. Munson with [facility] cardiology and pacemaker is possibly planned for today. Allergies Allergy/AdvReac Type Severity Reaction Status Date / Time No Known Allergies Allergy Unverified 01/13/22 11:08 Home Medications Medication Instructions Recorded Confirmed Type fexofenadine 60 mg tablet (Marilyn 60 mg PO DAILY 01/13/22 01/13/22 History Allergy) fluticasone propionate 50 2 spray INTRANASAL DAILY 01/13/22 01/13/22 History mcg/actuation nasal spray,suspension folic acid 1 mg tablet 1 mg PO DAILY 01/13/22 01/13/22 History mecobalamin (vitamin B12) 1,000 1,000 mcg PO DAILY 01/13/22 01/13/22 History mcg chewable tablet (B12 Active) Past Med/Surg History Medical History Seasonal allergies Surgical History No significant past surgical history Family History Mother Cancer Father Diabetes Social History Smoking Status: Never smoker Hx Alcohol Use: No Hx Substance Use: No Preferred Language: Amharic Dressing Room Porter Required: No Beliefs That Will Affect Care: None Other Information That Helps Us Care for You: No Feels Safe at Home: Yes Safety Concerns: Feels Safe At This Time Assistive Devices: Glasses Review of Systems Review of Systems: ROS per HPI, all other systems reviewed and negative Physical Exam Physical Exam: please refer to Dr. Álvarez's addendum for physical exam Results & Data Results & Data ([facility]) Vital Signs (Past 12 Hours) Vital Signs Temp Pulse Pulse Resp BP BP Pulse Ox 01/13/22 10:40 86 20 186/106 H 98 01/13/22 10:02 78 16 98 01/13/22 09:38 36.4 C L 93 H 18 176/97 H 97 Laboratory Results Short CBC 01/13/22 01/13/22 Range/Units 09:58 10:49 WBC Cancelled 5.14 Hgb Cancelled 14.6 Hct Cancelled 43.0 Plt Count Cancelled 209 BMP 01/13/22 09:58 Sodium 139 Potassium 3.8 Chloride 106 Carbon Dioxide 21 BUN 12 Creatinine 0.60 Glucose 104 H Calcium 10.0 Liver Function 01/13/22 Range/Units 09:58 Total Bilirubin 0.8 (0.2-1.0) mg/dl AST 21 (13-39) U/L ALT 22 (7-52) U/L Alkaline Phosphatase 81 (34-104) U/L Albumin 4.8 (3.4-5.0) gm/dl Diagnostic Findings Chest X-Ray 01/13/22 10:01 SINGLE VIEW CHEST CLINICAL HISTORY: Atypical chest pain. FINDINGS: An AP, portable, upright chest radiograph is obtained. No prior studies are available for comparison at the time of dictation. The cardiomediastinal silhouette is unremarkable. The lungs and pleural spaces are clear. No pneumothorax is seen. The skeletal structures are osteopenic. The bony thorax is grossly intact. IMPRESSION: No active disease in the chest. ACT 112: Negative or not required by law. Electronically signed by: Evin Combs M.D. 01/13/2022 12:37 PM Code Status & VTE Plan VTE Prophylaxis Plan VTE Prophylaxis will be ordered: Yes Supervising Physician Co-Signing Physician Notes Date of Service: January 13, 2022 History and physical exam performed by me. History notable for 66-year-old woman with no chronic medical problems except for seasonal allergies who was calling today ER for abnormal findings and Zio patch. Patient recently had Zio patch monitoring and per cardiology, was noted to have intermittent second-degree and some third-degree block and the test. On review of system, patient denies any symptoms. On Exam, General: Well nourished, well hydrated, average body habitus, no acute distress and not ill appearing Eyes: PERRL, conjunctivae normal, not pale, anicteric sclerae, EOM intact bilaterally ENMT: External ear and nose normal, oropharynx normal Respiratory: Normal respiratory effort, no respiratory distress, lungs clear to auscultation, no crackles and no wheezes Cardiovascular: RRR S1 S2 Gastrointestinal (Abdomen): Abdomen is not distended, soft, non-tender to palpation, no guarding, no palpable hepatosplenomegaly, normal bowel sounds Musculoskeletal: No cyanosis or clubbing, all extremities motor strength 5/5. No pedal edema Neurologic: Alert and oriented x 3, No focal weakness, sensation grossly intact Psychiatric: Alert and oriented x 3, euthymic affect, no depressed affect Labs was grossly unremarkable. AV block Intermittend 2nd degree and 3rd degree Cardiology consult for evaluation for pacemaker placement Avoid AV lloyd blocking agent N.p.o. for now for possible cardiac procedure Agree with other plans as detailed by Sarahi PETTY
--- NOTE | 2022-01-13 18:27 | Electrocardiogram Report ---
Test Reason : Blood Pressure : / mmHG Vent. Rate : 093 BPM Atrial Rate : 093 BPM P-R Int : 156 ms QRS Dur : 076 ms QT Int : 350 ms P-R-T Axes : 051 002 054 degrees QTc Int : 435 ms Normal sinus rhythm Possible Left atrial enlargement Nonspecific ST and T wave abnormality Abnormal ECG No previous ECGs available Confirmed by Jaun Rodriguez ([id number]) on 01/13/2022 6:26:30 PM Referred By: Confirmed By:Kong Rodriguez
[2022-01-13] MEDS: ACETAMINOPHEN 325 MG TAB PO PRN (22:09)
[2022-01-14 06:18] LABS: Hematocrit (blood only) 45.1 % (37-47); Hemoglobin 15.6 g/dL (12.0-16.0); Mean Corpuscular Hemoglobin 34.4 pg (25-34); Mean Corpuscular Hgb Conc 34.6 g/dL (32-36); Mean Corpuscular Volume 99.6 fL (80-100); Mean Platelet Volume 11.1 fL (7.4-10.4); Platelet Count 228 K/uL (130-400); RDW Coefficient of Variation 12.4 % (11.5-14.5); RDW Standard Deviation 45.2 fL (36.4-46.3); Red Blood Count 4.53 M/uL (4.2-5.4); White Blood Count 5.52 K/uL (4.8-10.8)
[2022-01-14 06:47] LABS: BUN Creatinine Ratio 19.4 (10-20); Calcium 9.5 mg/dl (8.5-10.1); Creatinine Clr Calc Pharmacy 79.2 ml/min; Est GFR (African American) 108.1 ml/min; Est GFR (Non-African American) 93.3 ml/min; Potassium 3.7 mmol/L (3.5-5.1)
[2022-01-14] MEDS ORDERED: VANCOMYCIN HCL 1000MG/20ML VIAL ONE (06:53)
[2022-01-14] MEDS ORDERED: LIDOCAINE 1% LOCAL 20 ML VIAL ONE (06:53)
[2022-01-14] MEDS ORDERED: BUPIVACAINE 0.25% 30 ML VIAL ONE (06:53)
[2022-01-14] MEDS ORDERED: WATER, STERILE FOR INJ 10 ML VIAL ONE (06:53)
[2022-01-14] MEDS ORDERED: MIDAZOLAM HCL 5 MG/ML 1 ML VIAL ONE (07:17)
[2022-01-14] MEDS ORDERED: ceFAZolin 330 MG/ML 1 GM VIAL ONE (07:17)
[2022-01-14] MEDS ORDERED: fentaNYL citrate 100 MCG/2 ML VIAL ONE (07:17)
--- NOTE | 2022-01-14 07:49 | Cardiology Progress Note ---
Date of Service January 14, 2022 Assessment & Plan (1) High degree atrioventricular block: (2) HTN, goal below 130/80: Plan: Patient is a 66-year-old female active without significant medical issues who was observed having intermittent second-degree AV block following routine colonoscopy in October 2021. Patient in follow-up underwent 14-day Zio patch monitor which demonstrated intermittent second and third-degree AV block. Patient minimally symptomatic with occasional lightheadedness at times no prior history of syncope or near syncope. No history of structural heart disease or symptoms, echo this admission stable. Thyroid function and Lyme test unremarkable. Underwent dual-chamber pacemaker placement with Dr. Rodriguez on 01/14. Discussed temporary lifestyle modifications post ppm Discussed symptoms of when to call the office vs. 911. Blood pressures have been elevated this admission but improve throughout the day, not currently on any antihypertensives. Blood pressures normally well controlled as an outpatient. No antihypertensives to be added at this time. Patient was encouraged to monitor BP at home occasionally and bring readings to outpatient followup. Case discussed with Dr. Munson, will follow during this hospital stay. Will arrange follow up in our outpatient clinic as well as our device clinic. Admission and Anticipated Discharge Date Admission Date: January 13, 2022 Supervising Physician Co-Signing Physician Notes Patient seen and examined post pacemaker. Small hematoma at surgical site with mild tenderness otherwise no complaints. Device functioning appropriately. Will likely observe overnight. Chest x-ray without pneumothorax Message sent to cardiology clinic to arrange wound check and pacer follow-up next week Subjective Patient is a 66-year-old female without prior cardiac disease or history was observed during colonoscopy in October to have transient second-degree AV block. Patient was referred and underwent cardiac evaluation and subsequent Zio patch event monitor recently completed. Study demonstrated intermittent second-degree as well as multiple episodes of brief third-degree heart block with junctional escape rhythm at 40 bpm. Lab work this admission unremarkable. Patient underwent dual chamber permanent pacemaker implantation today with Dr. Rodriguez Echo 01/13: LVEF 60 to 65% with no wall motion abnormalities. Minimal sclerotic changes of the aortic and mitral valve but otherwise normal valve structures and function. Chart reviewed. Patient seen and examined in Engine Room Operator holding area following her pacemaker insertion. Patient resting in bed comfortably. Denied any acute concerns. No chest pain or shortness of breath. Mild discomfort at incision site. Review of Systems Review of Systems: All systems reviewed & are unremarkable except as noted in HPI & below Physical Exam Constitutional: WD/WN, vitals as above Eyes: PERRL, conjunctivae normal, anicteric sclerae ENMT: external ear and nose normal, oropharynx normal Neck: trachea midline, no thyromegaly normal visual inspection and trachea midline; no neck crepitus Respiratory: normal respiratory effort, lungs clear to auscultation no cough Auscultation: no rales, no rhonchi and no wheezes Cardiovascular: Rate/Rhythm: regular rate and regular rhythm Heart Sounds: normal S1 and normal S2; no gallop and no murmur Palpation: normal PMI Vessels: normal carotid upstroke and radial pulses present; no JVD and no carotid bruit Extremities: no edema Chest (Breasts): Chest: normal inspection of chest and + pacemaker (left chest incisional dressing clean dry and intact.) Gastrointestinal (Abdomen): normal bowel sounds, soft, nontender, no hepatosplenomegaly Musculoskeletal: no cyanosis or clubbing, extremities motor strength 5/5 Skin: no rashes, warm and dry Neurologic: PERRL, EOMI, accommodation nl, no face palsy, no dysarthria Psychiatric: A+Ox3, euthymic affect Results & Data ([facility]) Vital Signs (Past 12 Hours) Vital Signs Temp Pulse Pulse Resp BP Pulse Ox 01/14/22 07:32 36.8 C 85 16 168/74 H 96 01/14/22 02:47 36.7 C 61 18 136/66 96 01/13/22 23:30 79 01/13/22 22:34 36.5 C 78 16 149/84 H 96 Laboratory Results Cardiac Enzymes 01/13/22 Range/Units 09:58 AST 21 (13-39) U/L Troponin I High Sens 2.9 (0-14) pg/ml Coagulation 01/13/22 01/13/22 Range/Units 09:58 10:49 PT Cancelled 11.2 APTT Cancelled 25.1 CBC 01/13/22 01/13/22 01/14/22 Range/Units 09:58 10:49 05:57 WBC Cancelled 5.14 5.52 RBC Cancelled 4.35 4.53 Hgb Cancelled 14.6 15.6 Hct Cancelled 43.0 45.1 Plt Count Cancelled 209 228 Neut # (Auto) Cancelled 3.05 Lymph # (Auto) Cancelled 1.57 [place] # (Auto) Cancelled 0.40 Eos # (Auto) Cancelled 0.06 Baso # (Auto) Cancelled 0.05 Comprehensive Metabolic Panel 01/13/22 01/14/22 Range/Units 09:58 05:57 Sodium 139 139 (136-145) mmol/L Potassium 3.8 3.7 (3.5-5.1) mmol/L Chloride 106 106 (98-107) mmol/L Carbon Dioxide 21 28 (21-32) mmol/L BUN 12 12 (6-23) mg/dl Creatinine 0.60 0.62 (0.6-1.2) mg/dl Glucose 104 H 102 H (70-99(Fasting)) mg/dl Calcium 10.0 9.5 (8.5-10.1) mg/dl AST 21 (13-39) U/L ALT 22 (7-52) U/L Alkaline Phosphatase 81 (34-104) U/L Total Protein 7.0 (6.0-8.3) gm/dl Albumin 4.8 (3.4-5.0) gm/dl Intake and Output 01/13/22 01/14/22 01/14/22 22:59 06:59 14:59 Intake Total 500 / 500 Balance 500 / 500 Intake: IV 500 / 500 Sodium Chloride 0.9% 1000ML 500 500 / 500 ml @ 999 mls/hr IV .Q31M ONE Rx#:[id number] Other: Other Intake Source npo # Unmeasured Voids 2 Weight 57.2 kg
[2022-01-14] MEDS ORDERED: POTASSIUM CHLORIDE CRTAB 20 MEQ TABCR PO ONE (08:12)
--- NOTE | 2022-01-14 08:13 | Cardiology Consultation ---
Date of Consultation January 14, 2022 Assessment & Plan (1) Third degree heart block: 1. Heart block: Patient was noted to have intermittent high-degree heart block. She does have some symptoms of dizziness on exertion which could be related. Notably, she did have additional episodes of intermittent heart block during telemetry monitoring in the hospital. We discussed the utility of a pacemaker in order to prevent symptoms. There does not appear to be a reversible cause for her heart block. I explained this conduction disease is likely to become progressive and produce more significant symptoms in the absence of a pacemaker. We did discuss the procedure itself as well as the atte ndant risks. And she is willing to proceed. History of Present Illness Reason for Consultation: Heart block Requesting Physician: Arpit Attending Physician: Abhay Rosenthal MD History of Present Illness The patient is a 66 who was noted on routine telemetry monitoring during a colonoscopy to have intermittent heart block. She was subsequently evaluated with outpatient monitoring and noted to have both 2nd and 3rd degree heart block. The patient is an active individual who generally able to exercise without symptoms. However, she does report some episodes of dizziness with activity. She has not suffered syncope. She has not had dizziness at rest. She has not been aware of palpitations. She denies any symptoms of exertional chest pain or significant dyspnea. Allergies Allergy/AdvReac Type Severity Reaction Status Date / Time No Known Allergies Allergy Unverified 01/13/22 11:08 Home Medications Medication Instructions Recorded Confirmed Type fexofenadine 60 mg tablet (Marilyn 60 mg PO DAILY 01/13/22 01/13/22 History Allergy) fluticasone propionate 50 2 spray INTRANASAL DAILY 01/13/22 01/13/22 History mcg/actuation nasal spray,suspension folic acid 1 mg tablet 1 mg PO DAILY 01/13/22 01/13/22 History mecobalamin (vitamin B12) 1,000 1,000 mcg PO DAILY 01/13/22 01/13/22 History mcg chewable tablet (B12 Active) Patient History Medical History Seasonal allergies Surgical History No significant past surgical history Family History Mother Cancer Father Diabetes Social History Smoking Status: Never smoker Hx Alcohol Use: No Hx Substance Use: No Preferred Language: Kazakh Senior Electronics Technician Required: No Beliefs That Will Affect Care: None Other Information That Helps Us Care for You: No Feels Safe at Home: Yes Safety Concerns: Feels Safe At This Time Assistive Devices: None Review of Systems Review of Systems: Per HPI Physical Exam Physical Exam: She is alert and oriented x3. Mood affect appear normal. She answered all questions appropriately. HEENT: Sclerae are anicteric. Pupils are equal and reactive to light and accommodation. Extraocular movements were intact. Neuro: Cranial nerves intact Lungs: Lungs are clear to auscultation bilaterally. There are no rales wheezes or rhonchi. She has normal respiratory effort without use of accessory muscles. There is normal pulmonary excursion. Cardiac: The rhythm was regular. S1 and S2 were normal. There are no murmurs on examination. The PMI was not markedly displaced on palpation. Extremities: Patient has bilateral radial pulses that are equal in intensity. There is no evidence cyanosis or clubbing. There was no evidence of significant peripheral edema bilaterally. Skin: There are no rashes noted on examination today. Results & Data ([facility]) Vital Signs (Past 12 Hours) Vital Signs Temp Pulse Pulse Resp BP Pulse Ox 01/14/22 07:32 36.8 C 85 16 168/74 H 96 01/14/22 02:47 36.7 C 61 18 136/66 96 01/13/22 23:30 79 01/13/22 22:34 36.5 C 78 16 149/84 H 96 Laboratory Results Abnormal Lab Results 01/13/22 01/13/22 01/13/22 09:58 10:24 10:24 WBC RBC Hgb Hct MCV MCH MCHC RDW Std Deviation RDW Coeff of Kiesha Plt Count MPV Immature Gran % (Auto) Neut % (Auto) Lymph % (Auto) [place] % (Auto) Eos % (Auto) Baso % (Auto) Neut # (Auto) Lymph # (Auto) [place] # (Auto) Eos # (Auto) Baso # (Auto) Immature Gran # (Auto) PT INR APTT PTT Ratio Sodium Potassium Chloride Carbon Dioxide Anion Gap BUN Creatinine Est Cr Clr Drug Dosing Est GFR ( Amer) Est GFR (Non-Af Amer) BUN/Creatinine Ratio Glucose Calcium Lipase 27 TSH Lyme Disease IgG Ab Negative Lyme Disease IgM Ab Negative SARS-CoV-2, RNA, NAAT NEGATIVE 01/13/22 01/13/22 01/13/22 10:49 10:49 10:50 WBC 5.14 RBC 4.35 Hgb 14.6 Hct 43.0 MCV 98.9 MCH 33.6 MCHC 34.0 RDW Std Deviation 44.7 RDW Coeff of Kiesha 12.3 Plt Count 209 MPV 10.9 H Immature Gran % (Auto) 0.2 Neut % (Auto) 59.3 Lymph % (Auto) 30.5 [place] % (Auto) 7.8 Eos % (Auto) 1.2 Baso % (Auto) 1.0 Neut # (Auto) 3.05 Lymph # (Auto) 1.57 [place] # (Auto) 0.40 Eos # (Auto) 0.06 Baso # (Auto) 0.05 Immature Gran # (Auto) 0.01 PT 11.2 INR 1.1 APTT 25.1 PTT Ratio 0.9 Sodium Potassium Chloride Carbon Dioxide Anion Gap BUN Creatinine Est Cr Clr Drug Dosing Est GFR ( Amer) Est GFR (Non-Af Amer) BUN/Creatinine Ratio Glucose Calcium Lipase TSH 1.956 Lyme Disease IgG Ab Lyme Disease IgM Ab SARS-CoV-2, RNA, NAAT 01/14/22 01/14/22 05:57 05:57 WBC 5.52 RBC 4.53 Hgb 15.6 Hct 45.1 MCV 99.6 MCH 34.4 H MCHC 34.6 RDW Std Deviation 45.2 RDW Coeff of Kiesha 12.4 Plt Count 228 MPV 11.1 H Immature Gran % (Auto) Neut % (Auto) Lymph % (Auto) [place] % (Auto) Eos % (Auto) Baso % (Auto) Neut # (Auto) Lymph # (Auto) [place] # (Auto) Eos # (Auto) Baso # (Auto) Immature Gran # (Auto) PT INR APTT PTT Ratio Sodium 139 Potassium 3.7 Chloride 106 Carbon Dioxide 28 Anion Gap 5 BUN 12 Creatinine 0.62 Est Cr Clr Drug Dosing 79.2 Est GFR ( Amer) 108.1 Est GFR (Non-Af Amer) 93.3 BUN/Creatinine Ratio 19.4 Glucose 102 H Calcium 9.5 Lipase TSH Lyme Disease IgG Ab Lyme Disease IgM Ab SARS-CoV-2, RNA, NAAT Diagnostic Findings Chest x-ray obtained the time admission not reveal any acute cardiopulmonary disease. Echocardiogram obtained 01/13/2022 demonstrated normal LV systolic function with ejection fraction of 60 65%. No significant valvular heart disease. ECG Additional Comments: EKG obtained the time admission revealed normal sinus rhythm. Normal EKG. PG Care Time/CCT Total # of Minutes Spent Total Time Spent with Patient: Total time spent is greater than 50% in coordination of care (as documented) at patient's floor/unit and/or counseling patient: Coding Level of Care Code INT OBSERVATION CARE 70M LVL 3 Diagnoses Third degree heart block I44.2
--- NOTE | 2022-01-14 08:14 | Pre Anesthesia Assessment ---
Date of Service January 14, 2022 Pre Sedation Assessment Vital Signs Temp Pulse Pulse Resp BP BP Pulse Ox 01/14/22 07:32 36.8 C 85 16 168/74 H 96 01/14/22 02:47 36.7 C 61 18 136/66 96 01/13/22 23:30 79 01/13/22 22:34 36.5 C 78 16 149/84 H 96 01/13/22 19:36 36.1 C L 77 20 154/101 H 95 01/13/22 15:38 36.8 C 67 18 140/85 95 01/13/22 15:01 67 01/13/22 14:42 36.8 C 76 18 168/88 H 97 01/13/22 13:56 78 12 139/98 98 01/13/22 13:00 74 19 139/98 95 01/13/22 10:40 86 20 186/106 H 98 01/13/22 10:02 78 16 98 01/13/22 09:38 36.4 C L 93 H 18 176/97 H 97 Cardiovascular + regular rhythm and + bradycardic Respiratory + respiratory effort normal Pre-Sedation Airway Assessment Smoking Status: Never smoker Hx Sleep Apnea: No Hx Difficult Intubation: No Short, Thick Neck: No Thyromental Distance: > or= 3.5 Finger Breadths Oral Cavity: + WNL Mallampati Class: III ASA: ASA3 NPO Status Date of Last Intake of Fluids: 01/13/22 Date of Last Intake of Solid Food: 01/13/22 Procedure Planning Contraindications for Sedation: none Current Medications Reviewed: Yes Notes The planned sedation has been discussed with the patient. Informed Consent was obtained. I have identified the patient, determined the appropriateness of sedation and have assessed the patient immediately prior to the procedure. All medicine(s) and interventions are by my order.
[2022-01-14] MEDS ORDERED: oxyCODONE HCL IR 5 MG TAB (IMMEDIATE RELEASE) PO PRN (09:18)
--- NOTE | 2022-01-14 09:18 | Post Anesthesia Assessment ---
Date of Service January 14, 2022 Post Sedation Assessment Vital Signs Temp Pulse Pulse Resp BP BP Pulse Ox 01/14/22 07:32 36.8 C 85 16 168/74 H 96 01/14/22 07:30 62 01/14/22 02:47 36.7 C 61 18 136/66 96 01/13/22 23:30 79 01/13/22 22:34 36.5 C 78 16 149/84 H 96 01/13/22 19:36 36.1 C L 77 20 154/101 H 95 01/13/22 15:38 36.8 C 67 18 140/85 95 01/13/22 15:01 67 01/13/22 14:42 36.8 C 76 18 168/88 H 97 01/13/22 13:56 78 12 139/98 98 01/13/22 13:00 74 19 139/98 95 01/13/22 10:40 86 20 186/106 H 98 01/13/22 10:02 78 16 98 01/13/22 09:38 36.4 C L 93 H 18 176/97 H 97 Recovery Score Activity: Moves 4 extremities Respiration: Deep Breath/Cough Circulation: +/-20% PreAnes Value Consciousness: Fully Awake Oxygen Saturation: > 92% On Room Air Discharge Sedation Level of Care: Fast Track Phase II Post Sedation Plan On clinical assessment, the patient appears to have tolerated the sedation without complications. Patient is recovering as anticipated. Patient will continue to be monitored by nursing and may be discharged when sedation discharge criteria are met per below protocol. Upon Completions of procedure up to 15 minutes continue every 5 minute vital signs and the P.A.R. score; then discharge to a Phase I or Fast Track to Phase II per the following guidelines: * Discharge Patient to appropriate Phase II area if PAR is 8 or greater or return to pre- procedure baseline. The post - procedure orders will be as directed. * If PAR score is less than 8 or not return to pre-procedure baseline then patient will follow Phase I monitoring till PAR is reached for Phase II. The Phase I may be done in procedure room or may call to secure a Phase I area. * If naloxone or flumazenil are used for reversal, hold in Phase I for continued monitoring from when last reversal dose was given for a minimum of 60 minutes or longer pending the nurse and/or physician discretion of patient condition before discharge to Phase II. Please call the Sedation Physician to re-evaluate and complete post-note for discharge to Phase II area. Do NOT discharge from procedure sedation or Phase 1 until post- sedation evaluation note is complete by procedure /sedation MD Sedation Discharge Instructions to be given to the patient at discharge to home.
--- NOTE | 2022-01-14 09:18 | Electrophysiology Report ---
Date of Service January 14, 2022 Electrophysiology Procedure Electrophysiology Procedure Report Procedure performed: Implantation of dual-chamber permanent pacemaker Staff track grinder: Jaun Rodriguez MD Indication: The patient is a 66-year-old woman with a history of high-degree AV block. She was advised to consider permanent pacemaker due to symptomatic nonreversible AV node dysfunction. Dual-chamber device was selected and she is currently in sinus rhythm and wished to maintain AV synchrony. Procedure in detail: The patient was informed of the risks benefits and alternatives to the intended procedure and she wished to proceed. She was taken to the electrophysiology [facility] in a fasting state. A preoperative antibiotic had been administered. The patient was monitored electrocardiographically throughout today's procedure and conscious sedation was administered per protocol. The left upper pectoral area is prepped and draped in usual sterile fashion. This area was anesthetized using subcutaneous administration of a xylocaine solution. An incision was made at t his site and carried down to the prepectoralis fascia using sharp dissection. Electrocautery was also employed for dissection as well as for hemostasis. A device pocket was fashioned tissues above the pectoralis muscle. Subsequent to this maneuver the left axillary vein was accessed using modified Seldinger technique. A sheath was placed over guidewire and used to facilitate passage of the guiding catheter for mapping of the interventricular septum. Once a desirable location was identify the ventricular lead was then advanced into the interventricular septum. Adequate sensing and threshold parameters were obtained prior to removal of the guiding catheter and sheath. Proximal portion lead was then sutured to the prepectoralis fascia using nonabsorbable suture. A sheath was placed over the remaining guidewire and used facilitate passage of the right atrial lead under fluoroscopic guidance. Adequate sensing threshold parameters were obtained prior to active fixation of this lead to the endocardial surface. The proximal portion lead was then sutured to prepectoralis fascia using nonabsorbable suture. The device pocket was irrigated with antibiotic solution. The leads were then attached to the device. The device and leads were then placed in the pocket and pocket was closed in 3 layers of absorbable suture. Steri-Strips and sterile dressing were applied. The device was tested noninvasively prior to conclusion the procedure. The patient tolerated procedure well there no immediate complications. Equipment used: New pulse generator: Child Protective Services Specialist [employer]. Model number: [id number] serial number [id number] Right atrial lead: Child Protective Services Specialist [employer]. Model number: 5076 serial number [id number] Right ventricular lead: Child Protective Services Specialist [employer]. Model number: 3830 serial number [id number] Measured data: Right atrial lead: P-waves measure 1.9 mV. Pacing threshold 0.75 volts at 0.4 milliseconds with a pacing impedance of 513 Ohms Right ventricular lead: R-waves measured 14.6 mV. Pacing threshold was 0.75 volts at 0.4 milliseconds with a pacing impedance of 680 Ohms Impression: Successful implantation of dual-chamber permanent pacemaker with left bundle pacing lead MN[employer] Electrophysiology codes Pacing Procedure 1: Pacin Insert/Replace Pacer A & V PG Moderate Sedation Codes Moderate Sedation Codes Procedure 1: Sedation/Anesthesia: 93018 Mod Sedation by the same physician;Init15 Min Child Age 5 & Up Procedure 2: Sedation/Anesthesia: 70874 Mod Sedation by the same physician; Ea [id number] Minutes
--- NOTE | 2022-01-14 11:33 | Electrocardiogram Report ---
Test Reason : Blood Pressure : / mmHG Vent. Rate : 070 BPM Atrial Rate : 070 BPM P-R Int : 148 ms QRS Dur : 076 ms QT Int : 414 ms P-R-T Axes : 052 -04 050 degrees QTc Int : 447 ms Normal sinus rhythm Normal ECG When compared with ECG of 13-JAN-2022 09:50, No significant change was found Confirmed by Jaun Rodriguez ([id number]) on 01/14/2022 11:33:05 AM Referred By: Michael Murphy Confirmed By:Kong Rodriguez
[2022-01-14] MEDS: ACETAMINOPHEN 325 MG TAB PO PRN ×2 (12:26→22:45)
--- NOTE | 2022-01-14 13:01 | XRay Report ---
XR chest 2V PA/lateral CLINICAL HISTORY: pacemaker placed COMPARISON STUDY: Chest radiograph January 13, 2022. FINDINGS: There is no pneumothorax following placement of a dual-lead left subclavian pacemaker. Gas within the chest wall is noted. Lead tips project over the right atrial appendage and right ventricle . There is prominence of the cardiac silhouette without evidence for pulmonary edema. There is no con solidation. Linear left basilar opacity represents atelectasis. IMPRESSION: No pneumothorax following placement of a dual-lead left subclavian pacemaker. ACT 112: Negative or not required by law. Electronically signed by: Adrian Matson M.D. 01/14/2022 1:00 PM
--- NOTE | 2022-01-14 14:39 | Electrocardiogram Report ---
Test Reason : Blood Pressure : / mmHG Vent. Rate : 100 BPM Atrial Rate : 100 BPM P-R Int : 178 ms QRS Dur : 124 ms QT Int : 394 ms P-R-T Axes : 058 -67 091 degrees QTc Int : 508 ms Atrial-sensed ventricular-paced rhythm Abnormal ECG When compared with ECG of 14-JAN-2022 05:11, (unconfirmed) Electronic ventricular pacemaker has replaced Sinus rhythm Confirmed by Jaun Rodriguez ([id number]) on 01/14/2022 2:39:36 PM Referred By: Michael Murphy Confirmed By:Kong Rodriguez
--- NOTE | 2022-01-14 17:07 | Hospitalist Progress Note ---
Date of Service January 14, 2022 Assessment & Plan (1) High degree atrioventricular block: Plan: Patient was referred by outpatient cardiology after Zio patch showed intermittent episodes of third-degree heart block and has dizziness with exertion Third-degree heart block S/P dual-chamber permanent pacemaker with left bundle pacing lead placement by on 01/14/22 --CXR:No pneumothorax following placement of a dual-lead left subclavian pacemaker. Negative Lyme screen Normal TSH ECHO: Left ventricle is normal in size. Normal left ventricular wall thickness. Left ventricular wall motion is normal. EF 60 to 65%. Minimal sclerotic changes of aortic and mitral valve leaflets with otherwise normal valve structures and function. Appreciate cardiology input Pain control Wound care as needed Needs follow-up with cardiology upon discharge (2) DVT prophylaxis: Plan: SCDs for now Admission and Anticipated Discharge Date Admission Date: January 13, 2022 Subjective Patient is seen and examined at bedside States having mild soreness at the site of pacemaker Denies any dyspnea, dizziness, leg, abdominal pain Discussed with cardiology today Review of Systems Review of Systems: All systems reviewed & are unremarkable except as noted in Subjective Physical Exam Physical Exam: Physical Exam: Vitals signs as noted above General Appearance:Moderately built and nourished, no apparent distress Head: normocephalic, Atraumatic Eyes: normal inspection, EOMI Neck: supple, Trachea midline Respiratory/Chest: Normal breath sounds, CTA, +Pacemaker Cardiovascular: S1, S2, No murmur Abdomen/GI:Soft, Non tender, Bowel sounds present Extremities/Musculoskeletal:normal inspection, no edema Neurologic/Psych:AAOX3, grossly no focal neurological deficits Skin: normal color, warm Results & Data Results & Data ([facility]) Vital Signs (Past 12 Hours) Vital Signs Temp Pulse Pulse Resp BP Pulse Ox 01/14/22 14:52 98 H 01/14/22 10:26 90 18 142/98 H 97 01/14/22 09:35 98 H 16 161/93 H 97 01/14/22 09:20 100 H 16 165/103 H 98 01/14/22 07:32 36.8 C 85 16 168/74 H 96 01/14/22 07:30 62 Laboratory Results Short CBC 01/14/22 Range/Units 05:57 WBC 5.52 (4.8-10.8) K/uL Hgb 15.6 (12.0-16.0) g/dL Hct 45.1 (37-47) % Plt Count 228 (130-400) K/uL BMP 01/14/22 05:57 Sodium 139 Potassium 3.7 Chloride 106 Carbon Dioxide 28 BUN 12 Creatinine 0.62 Glucose 102 H Calcium 9.5
[2022-01-14] MEDS ORDERED: ceFAZolin 1000MG 1,000 MG/7.5 ML SYR IV ONE (22:12)
[2022-01-15] MEDS: ACETAMINOPHEN 325 MG TAB PO PRN ×2 (03:41→08:58)
[2022-01-15] MEDS ORDERED: ceFAZolin 1000MG 1,000 MG/7.5 ML SYR IV ONE (07:13)
[2022-01-15 07:20] LABS: Hematocrit (blood only) 39.1 % (37-47); Hemoglobin 13.6 g/dL (12.0-16.0); Mean Corpuscular Hemoglobin 34.9 pg (25-34); Mean Corpuscular Hgb Conc 34.8 g/dL (32-36); Mean Corpuscular Volume 100.3 fL (80-100); Mean Platelet Volume 11.3 fL (7.4-10.4); Platelet Count 185 K/uL (130-400); RDW Coefficient of Variation 12.4 % (11.5-14.5); RDW Standard Deviation 45.3 fL (36.4-46.3); White Blood Count 5.62 K/uL (4.8-10.8)
--- NOTE | 2022-01-15 07:37 | Communication Note ---
Date of Service: January 15, 2022 Wound evaluated. Small hematoma and extensive ecchymosis. No worsening from yesterday. Pain improved. Elastic dressing re-applied. OK for discharge with standard instructions: No lifting left arm above shoulder or behind neck for 6 weeks May remove elastic dressing (bulky) tomorrow Remove gauze dressing on Monday Leave steri strips intact Keep wound dry until f/u next week Scheduled for evaluation in the clinic on Monday ([facility])
[2022-01-15 07:58] LABS: BUN Creatinine Ratio 18.5 (10-20); Calcium 8.9 mg/dl (8.5-10.1); Creatinine Clr Calc Pharmacy 89.7 ml/min; Est GFR (African American) 113.2 ml/min; Est GFR (Non-African American) 97.6 ml/min; Magnesium 2.1 mg/dl (1.7-2.4); Potassium 4.2 mmol/L (3.5-5.1)
--- NOTE | 2022-01-15 10:35 | Hospitalist Progress Note ---
Date of Service January 15, 2022 Assessment & Plan (1) High degree atrioventricular block: Plan: Patient was referred by outpatient cardiology after Zio patch showed intermittent episodes of third-degree heart block and has dizziness with exertion Third-degree heart block S/P dual-chamber permanent pacemaker with left bundle pacing lead placement by on 01/14/22 --CXR:No pneumothorax following placement of a dual-lead left subclavian pacemaker. Negative Lyme screen Normal TSH ECHO: Left ventricle is normal in size. Normal left ventricular wall thickness. Left ventricular wall motion is normal. EF 60 to 65%. Minimal sclerotic changes of aortic and mitral valve leaflets with otherwise normal valve structures and function. Appreciate cardiology input Pain control Wound care as needed Needs follow-up with cardiology upon discharge Re-dressing done today Plan to discharge home today (2) DVT prophylaxis: Plan: SCDs for now Admission and Anticipated Discharge Date Admission Date: January 13, 2022 Subjective Patient is seen and examined at bedside Feels well today Still has some soreness at the site of pacemaker but better Discussed with Cardiology Denies any dyspnea, dizziness, leg, abdominal pain Plan to discharge home today Review of Systems Review of Systems: All systems reviewed & are unremarkable except as noted in Subjective Physical Exam Physical Exam: Physical Exam: Vitals signs as noted above General Appearance:Moderately built and nourished, no apparent distress Head: normocephalic, Atraumatic Eyes: normal inspection, EOMI Neck: supple, Trachea midline Respiratory/Chest: Normal breath sounds, CTA, +Pacemaker Cardiovascular: S1, S2, No murmur Abdomen/GI:Soft, Non tender, Bowel sounds present Extremities/Musculoskeletal:normal inspection, no edema Neurologic/Psych:AAOX3, grossly no focal neurological deficits Skin: normal color, warm Results & Data Results & Data ([facility]) Vital Signs (Past 12 Hours) Vital Signs Temp Pulse Pulse Resp BP Pulse Ox 01/15/22 08:00 74 01/15/22 06:44 36.6 C 81 18 133/70 93 01/15/22 03:07 36.6 C 75 18 132/69 97 01/15/22 00:42 88 01/14/22 23:39 36.7 C 84 18 117/76 95 Laboratory Results Short CBC 01/15/22 Range/Units 06:41 WBC 5.62 (4.8-10.8) K/uL Hgb 13.6 (12.0-16.0) g/dL Hct 39.1 (37-47) % Plt Count 185 (130-400) K/uL [facility] 01/15/22 06:41 Sodium 137 Potassium 4.2 Chloride 105 Carbon Dioxide 28 BUN 10 Creatinine 0.54 L Glucose 112 H Calcium 8.9
--- NOTE | 2022-01-15 10:44 | Discharge Summary ---
Date of Service January 15, 2022 Admission HPI Per Admitting Provider 66-year-old female without significant past medical or surgical history who presents the ED by referral of cotton jammer for evaluation of third-degree heart block. Patient had routine screening colonoscopy in October and during the procedure was noted to have intermittent bradycardia and episodes of second- degree heart block. Patient was evaluated in the cardiology clinic and had an outpatient Zio patch performed. Results were reviewed today and patient has been having episodes of third-degree heart block. Patient reports that she has been feeling well recently. She reports that she walks several times per week. Notes that maybe she has been having some mild exertional shortness of breath and lightheadedness toward the end of her walks. She denies chest pain and palpitations. No syncopal events. Denies any other recent illnesses, fevers, chills. No abdominal pain, nausea, vomiting, diarrhea. Denies urinary symptoms. In the ED, patient is hemodynamically stable and currently in NSR. Labs are unremarkable. She has been evaluated by Dr. Munson with [facility] cardiology and pacemaker is possibly planned for today. Admission Exam Per Admitting Provider On Exam, General: Well nourished, well hydrated, average body habitus, no acute distress and not ill appearing Eyes: PERRL, conjunctivae normal, not pale, anicteric sclerae, EOM intact bilaterally ENMT: External ear and nose normal, oropharynx normal Respiratory: Normal respiratory effort, no respiratory distress, lungs clear to auscultation, no crackles and no wheezes Cardiovascular: RRR S1 S2 Gastrointestinal (Abdomen): Abdomen is not distended, soft, non-tender to palpation, no guarding, no palpable hepatosplenomegaly, normal bowel sounds Musculoskeletal: No cyanosis or clubbing, all extremities motor strength 5/5. No pedal edema Neurologic: Alert and oriented x 3, No focal weakness, sensation grossly intact Psychiatric: Alert and oriented x 3, euthymic affect, no depressed affect Principal Diagnosis Third-degree heart block Dual-chamber permanent pacemaker placement Discharge Data Allergies Allergy/AdvReac Type Severity Reaction Status Date / Time No Known Allergies Allergy Unverified 01/13/22 11:08 Consultations 01/13/22 11:04 ED Decision to Admit Stat 01/13/22 11:09 Consult Cardiology Routine Procedures Performed Operation Date: 01/14/22 08:00 Actual Procedures p Pacer with A/V Leads (Dual) - Jaun Rodriguez MD Ordered Studies 01/14/22 07:00 EP Lab Images for PACS ONCE Hospital Course (1) High degree atrioventricular block: Patient was referred by outpatient cardiology after Zio patch showed intermittent episodes of third-degree heart block and has dizziness with exertion Third-degree heart block S/P dual-chamber permanent pacemaker with left bundle pacing lead placement by on 01/14/22 --CXR:No pneumothorax following placement of a dual-lead left subclavian pacemaker. Negative Lyme screen Normal TSH ECHO: Left ventricle is normal in size. Normal left ventricular wall thickness. Left ventricular wall motion is normal. EF 60 to 65%. Minimal sclerotic changes of aortic and mitral valve leaflets with otherwise normal valve structures and function. Appreciate cardiology input Pain control Wound care as needed Needs follow-up with cardiology upon discharge Re-dressing done today Plan to discharge home today (2) DVT prophylaxis: SCDs for now Total Time Total Time Spent Total Time Spent (In Minutes): 40 minutes Discharge Plan Discharge Items Patient Disposition: Home - Self-Care Reason For Visit: 3RD DEGREE HEART BLOCK Discharge Diagnosis: Third-degree heart block Dual-chamber permanent pacemaker placement Activity: Per Instructions section Lifting Comment: No lifting left arm above shoulder or behind neck for 6 weeks Bathing: Keep incision dry Bathing Comment: keep wound dry and steri-strip intact until f/u next week Non-emergency contact: Primary Care Provider and Surgical Garment Assembler Call non-emergency contact if: your pain is concerning for you, you have a fever, your wound has increased drainage and your wound pain has increased Follow-up/Referrals: Gary De La Cruz, [Primary Care Provider] - Diet: Heart Healthy Addtl Attending Provider Instructions: May remove elastic dressing tomorrow. May remove gauze dressing on Monday. Keep stari-strips intact Addtl Maintenance Of Way Supervisor Provider Instructions: Follow-up with your primary care physician Dr. De La Cruz in 1 week. Please call for appointment Follow-up with your cotton jammer next week as scheduled. --- Complete antibiotic course as prescribed. Seek immediate medical attention if your symptoms reoccur or worsen Please take all medications as instructed on discharge list below. Please call if you have any questions or problems. You can reach a [facility] hospitalist on duty at [facility] 24 hours a day by calling [phone] ACTIVITY RECOMMENDATIONS: * Do not raise affected arm over head for 2 weeks. SPECIAL CARE INSTRUCTIONS: * If bleeding occurs, apply direct pressure to area for 5 minutes. * Call your doctor if you have severe pain, fever, drainage or bleeding at site. * Keep dressing on and dry for 48 hours then remove. * Keep any scheduled doctor's appointment. * Implant Card - hand held device with website information given. SKIN IRRITATION: * You may experience some redness and/or swelling in the area where radiation was administered. If any skin irritation occurs, please contact your family physician. FOLLOW UP VISIT: Keep any scheduled doctor appointments. Pending Studies at Discharge: No Stand-Alone Forms: My [facility], Smoking Cessation Medications and DC Order Prescriptions: New cephalexin 500 mg capsule 500 mg PO BID 5 Days Qty: 10 RF: 0 Continued fexofenadine [Marilyn Allergy] 60 mg Tablet 60 mg PO DAILY RF: 0 folic acid 1 mg tablet 1 mg PO DAILY RF: 0 fluticasone propionate 50 mcg/actuation spray,suspension 2 spray INTRANASAL DAILY RF: 0 B12 Active 1,000 mcg Tablet,Chewable 1,000 mcg PO DAILY RF: 0 Discharge Orders: Discharge Order (Routine); Ordered 01/15/22 Ordered By: Abhay Rosenthal Admission Data Admit Date/Time: 01/13/22 11:47 Attending Provider: Abhay Rosenthal Admit Provider: Karen Álvarez I. Primary Care Provider: Gary De La Cruz Other Providers: Karen Álvarez I. ; Jaun Rodriguez
== END 2022-01-15 12:36 | disposition home or self-care (01) | DRG 243 ==
LOC: ED 09:37 → SUATTDRO 11:47 → 2E 11:47